=== PATIENT | female | born 1960 | race Caucasian/White ===

== ENCOUNTER → 2017-11-02 | Outpatient (CLI) | payer OTHER ==
[~2017-11-02] MED LIST: ASCO-182 PO; Antidepressant PO; Biest TOP; CHOL10005 PO; PROG100C PO; [UNRECOGNIZED DRUG - CODE] PO
--- NOTE | 2017-11-05 10:54 | RADIOLOGY IMAGING REPORT ---
FACILITY: [facility] PATIENT NAME: BESS EDUARDO : [id number] MR: [id number] V: [id number] EXAM DATE: ORDERING PHYSICIAN: REILLY GERARDO TECHNOLOGIST: Diamond Lundy PROCEDURE:BILATERAL DIGITAL SCREENING MAMMOGRAM WITH CAD ASSISTED INTERPRETATION & 3D TOMOSYNTHESIS COMPARISON:Prior mammograms 09/07/16, 08/17/15, 08/14/14, 08/05/13, 05/29/12. INDICATIONS:screening FINDINGS: A small amount of fibroglandular tissue is seen throughout the breasts. The parenchymal pattern has remained stable allowing for difference in mammographic technique & patient positioning. There is no evidence of malignant appearing mass, malignant appearing calcifications or other secondary sign of malignancy in either breast. DIAGNOSTIC CATEGORY 1--NEGATIVE. RECOMMENDATIONS: ROUTINE MAMMOGRAM AND CLINICAL EVALUATION. IMPRESSION: BIRADS 1: Negative. No significant abnormality is seen. Dictated by: Marcy Campbell M.D. on 11/02/2017 at 14:49 Transcribed by: DESIRE on 11/02/2017 at 15:06 Approved by: Marcy Campbell M.D. on 11/05/2017 at 10:54 [facility]
== END ==
LOC: MAMO 00:07
PROVIDERS: ATTEND Physician Assistant
DX: Z12.31 Encounter for screening mammogram for malignant neoplasm of breast (principal)
CPT/HCPCS: 77063; 77067